=== PATIENT | male | born 1985 | race African-American/Black ===

== ENCOUNTER 2016-04-05 06:01 | Emergency (ER) | payer BC ==
[2016-04-05] MEDS ORDERED: NORMAL SALINE 1000 ML 1,000 ML IV PRN (06:43)
[2016-04-05 07:13] LABS: ABSOLUTE LYMPHOCYTES (AUTO) 1.9 10^3/uL (0.5-4.7); ABSOLUTE MONOCYTES (AUTO) 0.7 10^3/uL (0.1-1.4); BASOPHILS % (AUTO) 0.4 % (0-2); EOSINOPHILS % (AUTO) 0.6 % (0-6); HEMATOCRIT 43.9 % (37.9-51.0); HEMOGLOBIN 14.4 g/dL (13.5-17.0); HGB HCT DIFFERENCE -0.7; LYMPHOCYTES % (AUTO) 21.6 % (13-45); MEAN CORPUSCULAR HEMOGLOBIN 23.3 pg (27.0-33.4); MEAN CORPUSCULAR HGB CONC 32.9 g/dL (32.0-36.0); MEAN CORPUSCULAR VOLUME 71 fl (80-97); MONOCYTES % (AUTO) 7.9 % (3-13); RED BLOOD COUNT 6.19 10^6/uL (4.35-5.55); RED CELL DISTRIBUTION WIDTH 14.5 % (11.5-14.0); SEGMENTED NEUTROPHILS % (AUTO) 69.5 % (42-78); WHITE BLOOD COUNT 8.6 10^3/uL (4.0-10.5)
[2016-04-05 07:18] LABS: APPEARANCE,URINE CLEAR; BILIRUBIN,URINE NEGATIVE (NEGATIVE); GLUCOSE, URINE NEGATIVE (NEGATIVE); KETONES,URINE NEGATIVE (NEGATIVE); LEUKOCYTE ESTERASE,URINE NEGATIVE (NEGATIVE); NITRITE,URINE NEGATIVE (NEGATIVE); PROTEIN,URINE NEGATIVE (NEGATIVE); URINE SPECIFIC GRAVITY 1.016; UROBILINOGEN,URINE NEGATIVE mg/dL (<2.0)
[2016-04-05 07:19] LABS: PROTHROMBIN TIME 13.2 SEC (11.4-15.4)
[2016-04-05 07:41] LABS: ALANINE AMINOTRANSFERASE 93 U/L (21-72); ALBUMIN 4.5 g/dL (3.5-5.0); ALKALINE PHOSPHATASE 83 U/L (38-126); ANION GAP 13 (5-19); ASPARTATE AMINO TRANSFERASE 39 U/L (17-59); BILIRUBIN,TOTAL 0.4 mg/dL (0.2-1.3); BLOOD UREA NITROGEN 18 mg/dL (7-20); CALCIUM 9.8 mg/dL (8.4-10.2); CARBON DIOXIDE 29 mmol/L (22-30); CHLORIDE 97 mmol/L (98-107); CREATINE KINASE 216 U/L (55-170); CREATININE RESULT 1.06 mg/dL (0.52-1.25); GLUCOSE 142 mg/dL (75-110); LIPASE 88.9 U/L (23-300); POTASSIUM 3.6 mmol/L (3.6-5.0); SODIUM 139.4 mmol/L (137-145); TOTAL PROTEIN 7.9 g/dL (6.3-8.2)
[2016-04-05 07:46] LABS: ALCOHOL < 10 mg/dL (NONE DETECTED)
[2016-04-05 07:52] LABS: CREATINE KINASE MB 0.38 ng/mL (<4.55); TROPONIN I < 0.012 ng/mL
[2016-04-05 08:11] LABS: THYROID STIMULATING HORMONE 2.51 uIU/mL (0.47-4.68)
[2016-04-05 08:13] VITALS: BP 138/73
--- NOTE | 2016-04-05 08:55 | ER Document Report ---
ED General - General Chief Complaint: Palpitations Stated Complaint: FAST HEART RATE TRAVEL OUTSIDE OF THE [place] IN LAST 30 DAYS: No - HPI Patient complains to provider of: tachycardia Notes: Patient states he was drinking tonight after drinking alcohol developed tachycardia. Patient states he was drinking beer and adrian. Denies any drug abuse. Patient states was resting tachycardia developed denies any chest pain shortness of breath recent travel fevers chills nausea vomiting diarrhea. Patient otherwise has no complaints - Related Data Allergies/Adverse Reactions: No Known Allergies Allergy (Verified 04/05/16 06:07) Home Medications: Current Home Medications Amlodipine Besylate [Amlodipine Besylate] 1 tab PO QAM 04/05/16 [History] Atorvastatin Calcium [Atorvastatin Calcium] 1 tab PO QAM 04/05/16 [History] Hydrochlorothiazide [Hydrochlorothiazide] 1 tab PO QAM 04/05/16 [History] Past Medical History - Social History Smoking Status: Unknown if Ever Smoked Family History: Reviewed & Not Pertinent Patient has suicidal ideation: No Patient has homicidal ideation: No - Past Medical History Cardiac Medical History: Reports: Hx Hypercholesterolemia, Hx Hypertension Surgical Hx: Negative - Immunizations Hx Diphtheria, Pertussis, Tetanus Vaccination: Yes Review of Systems - Review of Systems Constitutional: No symptoms reported EENT: No symptoms reported Cardiovascular: Palpitations Respiratory: No symptoms reported Gastrointestinal: No symptoms reported Genitourinary: No symptoms reported Male Genitourinary: No symptoms reported Musculoskeletal: No symptoms reported Skin: No symptoms reported Hematologic/Lymphatic: No symptoms reported Neurological/Psychological: No symptoms reported -: Yes All other systems reviewed and negative Physical Exam - Vital signs Vitals: Temp Pulse BP Pulse Ox 98.6 F 125 H 163/84 H 98 04/05/16 06:17 04/05/16 06:17 04/05/16 06:17 04/05/16 06:17 Interpretation: Normal - General General appearance: Appears well, Alert - HEENT Head: Normocephalic, Atraumatic Eyes: Normal Pupils: PERRL - Respiratory Respiratory status: No respiratory distress Chest status: Nontender Breath sounds: Normal Chest palpation: Normal - Cardiovascular Rhythm: Tachycardia Heart sounds: Normal auscultation Murmur: No - Abdominal Inspection: Normal Distension: No distension Bowel sounds: Normal Tenderness: Nontender Organomegaly: No organomegaly - Back Back: Normal, Nontender - Extremities General upper extremity: Normal inspection, Nontender, Normal color, Normal ROM , Normal temperature General lower extremity: Normal inspection, Nontender, Normal color, Normal ROM , Normal temperature, Normal weight bearing. No: Flores's sign - Neurological Neuro grossly intact: Yes Cognition: Normal Orientation: AAOx4 Jahaira Coma Scale Eye Opening: Spontaneous [place] Coma Scale Verbal: Oriented [place] Coma Scale Motor: Obeys Commands [place] Coma Scale Total: 15 Speech: Normal Motor strength normal: LUE, RUE, LLE, RLE Sensory: Normal - Psychological Associated symptoms: Normal affect, Normal mood - Skin Skin Temperature: Warm Skin Moisture: Dry Skin Color: Normal Course - Re-evaluation Re-evalutation: 04/05/16 08:36 Patient coming in for evaluation tachycardia. Patient's lab work shows no critical etiology. After IV hydration patient's tachycardia has improved. More likely tachycardia due to dehydration or alcohol abuse. At this time we are unable to perform urine drug screen testing due to lack of laboratory reagent. This also on the differential patient with no chest pain no shortness of breath with them and laboratory studies and afebrile symptoms after IV hydration. Patient stable to go home. - Vital Signs Vital signs: Temp Pulse Resp BP Pulse Ox 98.6 F 125 H 21 H 138/73 H 100 04/05/16 06:17 04/05/16 06:17 04/05/16 08:01 04/05/16 08:01 04/05/16 08:01 - Laboratory Result Diagrams: 04/05/16 06:55 04/05/16 06:55 Laboratory results interpreted by me: 04/05/16 04/05/16 04/05/16 06:55 06:55 06:55 RBC 6.19 H MCV 71 L MCH 23.3 L RDW 14.5 H Chloride 97 L Glucose 142 H ALT 93 H Creatine Kinase 216 H Urine Ascorbic Acid 20 H Discharge - Discharge Clinical Impression: Tachycardia, Alcohol use Condition: Good Disposition: HOME, SELF-CARE Instructions: Palpitations (Irregular or Rapid Heartrate) ([facility]) Additional Instructions: Please limit your alcohol use. Return to ER symptoms worsen. Forms: Return to Work
--- NOTE | 2016-04-05 10:21 | EKG REPORT ---
SEVERITY:- BORDERLINE ECG - SINUS TACHYCARDIA BORDERLINE T ABNORMALITIES, ANT-LAT LEADS : Confirmed by: Luis Daniel Riley 05-Apr-2016 10:20:29
[2016-04-08 14:33] LABS: URINE BARBITURATES SCREEN NEGATIVE; URINE METHADONE SCREEN NEGATIVE; URINE PHENCYCLIDINE SCREEN NEGATIVE
== END 2016-04-05 08:53 | disposition home or self-care (01) ==
LOC: ER 06:01
DX: R00.0 Tachycardia, unspecified (principal); Z72.89 Other problems related to lifestyle; E78.00 Pure hypercholesterolemia, unspecified; I10 Essential (primary) hypertension
CPT/HCPCS: 93005; 99285; 96360; 36415; 84439; 82553; 80307 ×2; 82550; 83690; 84443; 85025; 85610; 80053; 81001; 84484; 93010; J7030

== ENCOUNTER 2019-10-05 01:10 | Emergency (ER) | payer BC ==
--- NOTE | 2019-10-05 03:29 | ER Document Report ---
ED General - General Chief Complaint: Neck Pain >24hrs old Stated Complaint: NECK PAIN Time Seen by Provider: 10/05/19 03:15 [facility] [[facility] - Follow up as needed VIDHYA LATIF MD [Primary Care Provider] - Follow up as needed Notes: 34-year-old male presents emergency department complaining of right-sided anterior neck pain that he woke up with a few days ago and has been constant ever since. The only thing that relieves it is taking a Goody's powder and that it will go away completely and then comes back the next day. He states that if he coughs to clear his throat he has some pain or if he flexes his head to the left he has some pain otherwise there is no pain. Denies any fevers, any foreign body sensation, any restriction of movement or any injury to the area. Denies any sore throat or rhinorrhea. Patient also notes that he has a history of hypertension which has not been treated for the past year. He is aware of the importance of treating this, aware of the importance of following up with his primary care physician. TRAVEL OUTSIDE OF THE [place] IN LAST 30 DAYS: No - Related Data Allergies/Adverse Reactions: No Known Allergies Allergy (Verified 04/05/16 06:07) Past Medical History - General Information source: Patient - Social History Smoking Status: Never Smoker Frequency of alcohol use: Social Drug Abuse: None Family History: Hypertension - Past Medical History Cardiac Medical History: Reports: Hx Hypercholesterolemia, Hx Hypertension - Immunizations Hx Diphtheria, Pertussis, Tetanus Vaccination: Yes Review of Systems - Review of Systems Constitutional: No symptoms reported EENT: See HPI, Other - Anterior neck pain. denies: Throat pain, Difficulty swallowing, Throat swelling, Mouth pain, Mouth swelling Musculoskeletal: See HPI, Neck pain -: Yes All other systems reviewed and negative Physical Exam - Vital signs Vitals: Temp Pulse Resp BP Pulse Ox 98.5 F 79 18 157/106 H 100 10/05/19 01:35 10/05/19 01:35 10/05/19 01:35 10/05/19 01:35 10/05/19 01:35 Interpretation: Hypertensive - Notes Notes: GENERAL: Alert, interacts well. No acute distress. HEAD: Normocephalic, atraumatic EYES: Pupils equal, round and reactive to light, extraocular movements intact. ENT: Oral mucosa moist, tongue midline. Nares patent, no nasal septal hematoma, TMs intact. No tonsillar enlargement, no deviation of the uvula, no evidence of peritonsillar abscess. NECK: Full range of motion, supple, trachea midline. Pinpoint tenderness between the trachea and the sternocleidomastoid muscle on the right hand side midway between the clavicle and the chin, there is no mass here, there is no fluctuance, there is no erythema, there is a noninfected appearing ingrown hair just superior to this which is not tender to palpation. There is no tracheal deviation, there is no thyroid enlargement. There is no distention of the neck veins. Patient has full range of motion of his neck. There is no spasm of the sternocleidomastoid muscle. LUNGS: Clear to auscultation bilaterally, no respiratory distress. NEUROLOGICAL: Alert and oriented x3, normal speech, cranial nerves II through XII grossly intact. PSYCH: Normal mood, normal affect. SKIN: Warm, Dry, normal turgor. Course - Re-evaluation Re-evalutation: 10/05/19 04:12 Patient stated that he was concerned about a possible aneurysm to his jugular vein. We discussed that currently has no risk factors for this and no signs of this. I also discussed the other concerning things that would cause pain in this area that would require imaging, he agrees to try conservative treatment first in order to reduce his exposure to radiation. Should the patient develop fever, difficulty swallowing, any blurry vision or neurologic symptoms, difficulty moving his neck or any swelling he will return to the emergency department and we will consider imaging. Patient will try anti-inflammatories and muscle relaxers first. Likely he has an inflamed lymph node that is in the deeper space of the neck possibly related to the ingrown hair that is causing this pain. No indication for antibiotics for the ingrown hair as there is no erythema and no fluctuance and the hair itself is not tender. - Vital Signs Vital signs: Temp Pulse Resp BP Pulse Ox 98.8 F 88 18 173/109 H 99 10/05/19 03:35 10/05/19 03:35 10/05/19 03:35 10/05/19 03:35 10/05/19 03:35 Discharge - Discharge Clinical Impression: Neck pain on right side Condition: Stable Disposition: HOME, SELF-CARE Additional Instructions: Today I did not find any signs of infection, pinched nerve or other serious cause of neck pain. I suspect you likely have a somewhat inflamed lymph node from the ingrown hairs on your neck that is also causing some pain when it pushes on the muscles in your neck. I would like you to take ibuprofen 800 mg every 8 hours whether you think you need it or not for the next 3 days. I would also like you to take the Robaxin which is a muscle relaxer if you continue to have pain after taking the ibuprofen. This should help to relieve some of your symptoms. Please return for fevers, difficulty swallowing, visible swelling to your neck or difficulty moving her neck or any new or concerning symptoms. Prescriptions: Methocarbamol [Robaxin 750 mg Tablet] 750 mg PO Q8HP PRN #20 tablet PRN Reason: Referrals: VIDHYA LATIF MD [Primary Care Provider] - Follow up as needed [facility] - Follow up as needed
[2019-10-05 03:36] VITALS: BP 173/109
== END 2019-10-05 03:40 | disposition home or self-care (01) ==
LOC: ER 01:10
DX: M54.2 Cervicalgia (principal); E78.00 Pure hypercholesterolemia, unspecified; I10 Essential (primary) hypertension
CPT/HCPCS: 99283

== ENCOUNTER → 2019-10-10 | Outpatient (CLI) | payer BC ==
[2019-10-10 11:32] LABS: ALKALINE PHOSPHATASE 92 U/L (38-126); ANION GAP 11 (5-19); ASPARTATE AMINO TRANSFERASE 56 U/L (17-59); BILIRUBIN,TOTAL 0.5 mg/dL (0.2-1.3); BLOOD UREA NITROGEN 13 mg/dL (7-20); CALCIUM 9.8 mg/dL (8.4-10.2); CARBON DIOXIDE 26 mmol/L (22-30); CHLORIDE 102 mmol/L (98-107); GLUCOSE 100 mg/dL (75-110); POTASSIUM 4.7 mmol/L (3.6-5.0)
== END ==
LOC: OD 10:17
PROVIDERS: ATTEND Physician Assistant
DX: E87.5 Hyperkalemia (principal)
CPT/HCPCS: 36415; 80053

== ENCOUNTER → 2019-12-07 | Outpatient (CLI) | payer BC ==
--- NOTE | 2019-12-07 11:48 | RADIOLOGY REPORT (SQ) ---
EXAM DESCRIPTION: U/S ABDOMEN LIMITED W/O DOP IMAGES COMPLETED DATE/TIME: 12/07/2019 8:44 am REASON FOR STUDY: ELEVATED LIVER ENZYMES R74.8 ABNORMAL LEVELS OF OTHER SERUM ENZYMES COMPARISON: None. TECHNIQUE: Dynamic and static grayscale images acquired of the abdomen and recorded on PACS. Additio nal selected color Doppler and spectral images recorded. LIMITATIONS: None. FINDINGS: PANCREAS: The visualized portions of the pancreas appear normal. LIVER: Normal contour and echotexture of the liver. LIVER VASCULATURE: Hepatopetal directional flow within the portal veins. GALLBLADDER: The gallbladder wall measures 2.3 mm in thickness. There is no cholelithiasis, sludge o r pericholecystic fluid. ULTRASOUND-DETECTED CARRION'S SIGN: Negative. INTRAHEPATIC DUCTS AND COMMON DUCT: The common bile duct measures 2.5 mm in diameter. There is no di latation of the intrahepatic bile ducts. INFERIOR VENA CAVA: Not assessed. AORTA: No aneurysm. RIGHT KIDNEY: The right kidney measures 9.3 cm in length. There is no hydronephrosis. PERITONEAL AND RIGHT PLEURAL SPACE: No ascites or effusions. OTHER: No other findings. IMPRESSION: Negative ultrasound of the abdomen. TECHNICAL DOCUMENTATION: JOB ID: [id number] 2010 [employer]- All Rights Reserved Reading location - IP/workstation name: [email or web address]
== END ==
LOC: RAD 07:56
PROVIDERS: ATTEND Physician Assistant
DX: R74.8 Abnormal levels of other serum enzymes (principal)
CPT/HCPCS: 76705

== ENCOUNTER 2020-02-12 17:30 | Emergency (ER) | payer BC ==
--- NOTE | 2020-02-12 18:58 | RADIOLOGY REPORT (SQ) ---
EXAM DESCRIPTION: CHEST 2 VIEWS IMAGES COMPLETED DATE/TIME: 02/12/2020 6:31 pm REASON FOR STUDY: chest pain racing heart COMPARISON: None. EXAM PARAMETERS: NUMBER OF VIEWS: two views TECHNIQUE: Digital Frontal and Lateral radiographic views of the chest acquired. RADIATION DOSE: NA LIMITATIONS: none FINDINGS: LUNGS AND PLEURA: No opacities, masses or pneumothorax. No pleural effusion. MEDIASTINUM AND HILAR STRUCTURES: No masses or contour abnormalities. HEART AND VASCULAR STRUCTURES: Heart normal size. No evidence for failure. BONES: No acute findings. HARDWARE: None in the chest. OTHER: No other significant finding. IMPRESSION: NO ACUTE RADIOGRAPHIC FINDING IN THE CHEST. TECHNICAL DOCUMENTATION: JOB ID: [id number] 2010 [employer]- All Rights Reserved Reading location - IP/workstation name: [email or web address]
[2020-02-12 19:05] LABS: ABSOLUTE BASOPHILS # (AUTO) 0.1 10^3/uL (0.0-0.2); ABSOLUTE LYMPHOCYTES (AUTO) 2.1 10^3/uL (0.5-4.7); ABSOLUTE MONOCYTES (AUTO) 0.4 10^3/uL (0.1-1.4); BASOPHILS % (AUTO) 1.2 % (0-2); EOSINOPHILS % (AUTO) 0.4 % (0-6); HEMATOCRIT 42.8 % (37.9-51.0); HEMOGLOBIN 13.7 g/dL (13.5-17.0); LYMPHOCYTES % (AUTO) 37.5 % (13-45); MEAN CORPUSCULAR HEMOGLOBIN 23.3 pg (27.0-33.4); MEAN CORPUSCULAR VOLUME 73 fl (80-97); MONOCYTES % (AUTO) 6.8 % (3-13); PLATELET COUNT 359 10^3/uL (150-450); RED BLOOD COUNT 5.89 10^6/uL (4.35-5.55); RED CELL DISTRIBUTION WIDTH 15.1 % (11.5-14.0); SEGMENTED NEUTROPHILS % (AUTO) 54.1 % (42-78); TOTAL CELLS COUNTED % (AUTO) 100 %; WHITE BLOOD COUNT 5.6 10^3/uL (4.0-10.5)
[2020-02-12 19:15] LABS: ALKALINE PHOSPHATASE 79 U/L (38-126); ANION GAP 11 (5-19); ASPARTATE AMINO TRANSFERASE 34 U/L (17-59); BILIRUBIN,DIRECT 0.1 mg/dL (0.0-0.4); BILIRUBIN,TOTAL 0.5 mg/dL (0.2-1.3); BLOOD UREA NITROGEN 12 mg/dL (7-20); CALCIUM 10.1 mg/dL (8.4-10.2); CARBON DIOXIDE 28 mmol/L (22-30); CHLORIDE 101 mmol/L (98-107); GLUCOSE 113 mg/dL (75-110); POTASSIUM 4.4 mmol/L (3.6-5.0); TOTAL PROTEIN 8.3 g/dL (6.3-8.2)
--- NOTE | 2020-02-12 19:53 | ER Document Report ---
ED Cardiac - General Chief Complaint: Palpitations Stated Complaint: PALPITATIONS Time Seen by Provider: 02/12/20 17:55 Primary Care Provider: SPEEDY MARQUEZ PA [NO LOCAL MD] - Follow up as needed Notes: CHIEF COMPLAINT: Palpitations HPI: History is obtained from the patient and the records. A 34-year-old male presenting for evaluation of palpitations over the last week. 2-3 times daily. States this is similar to something that happened to him 3 years ago. States he did see cardiology at that time and they put him on a Holter monitor for a day did not see anything and he did not follow back up with them. Patient states that when the symptoms come on they may last up to an hour and he feels very anxious. He does not take any medications for anxiety. ROS: See HPI - all other systems were reviewed and are otherwise negative Constitutional: no fever Eyes: no drainage, no blurred vision ENT: no runny nose, no sore throat Cardiovascular: + chest pain Resp: no SOB, no cough GI: no vomiting, no diarrhea, no abdominal pain : no dysuria Integumentary: no rash Allergy: no hives Musculoskeletal: no extremity pain or swelling Neurological: no numbness/tingling, no weakness MEDICATIONS: I agree with the patient medications as charted by the RN. ALLERGIES: I agree with the allergies as charted by the RN. PAST MEDICAL HISTORY/PAST SURGICAL HISTORY: Reviewed and agree as charted by RN. SOCIAL HISTORY: Reviewed and agree as charted by RN. FAMILY HISTORY: No significant familial comorbid conditions directly related to patient complaint EXAM: Reviewed vital signs as charted by RN. CONSTITUTIONAL: Alert and oriented and responds appropriately to questions. Well-appearing; well-nourished HEAD: Normocephalic; atraumatic EYES: PERRL; Conjunctivae clear, sclerae non-icteric ENT: normal nose; no rhinorrhea; moist mucous membranes; pharynx without lesions noted, no uvula edema or deviation, no tonsillar hypertrophy, phonation normal NECK: Supple without meningismus; non-tender; no cervical lymphadenopathy, no masses CARD: RRR; no murmurs, no clicks, no rubs, no gallops; symmetric distal pulses RESP: Normal chest excursion without splinting or tachypnea; breath sounds clear and equal bilaterally; no wheezes, no rhonchi, no rales, pulse oximetry 98% on room air not hypoxic ABD/GI: Normal bowel sounds; non-distended; soft, non-tender, no rebound, no guarding; no palpable organomegaly or masses. BACK: The back appears normal and is non-tender to palpation, there is no CVA tenderness EXT: Normal ROM in all joints; non-tender to palpation; no cyanosis, no effusions, no edema SKIN: Normal color for age and race; warm; dry; good turgor; no acute lesions noted NEURO: Moves all extremities equally; Motor and sensory function intact PSYCH: The patient's mood and manner are appropriate. Grooming and personal hygiene are appropriate. MDM: EKG normal sinus rhythm ventricular rate of 91. ND 156, QT 276, QTc 340. Borderline T wave flattening across all leads. Borderline EKG. Interpreted by emergency department physicians. EKG is essentially unchanged from March 2016. 34-year-old male presenting with palpitations over the last week. Has been in a normal sinus rhythm here in the emergency department. Mildly hypertensive with history of same is on medication for same. He will discuss this with his PCP. I will refer him to cardiology in town per his request. Th is may also be anxiety. He states he does feel anxious around these times when he has the sensation and would like medication for this as well to see if it helps TRAVEL OUTSIDE OF THE [place] IN LAST 30 DAYS: No - Related Data Allergies/Adverse Reactions: No Known Allergies Allergy (Verified 04/05/16 06:07) Home Medications: Amlodipine Past Medical History - Social History Smoking Status: Never Smoker Frequency of alcohol use: Social Drug Abuse: None Family History: Hypertension - Past Medical History Cardiac Medical History: Reports: Hx Hypercholesterolemia, Hx Hypertension - Immunizations Hx Diphtheria, Pertussis, Tetanus Vaccination: Yes Physical Exam - Vital signs Vitals: Temp Pulse Resp BP Pulse Ox 99.0 F 98 20 172/98 H 100 02/12/20 17:43 02/12/20 17:43 02/12/20 17:43 02/12/20 17:43 02/12/20 17:43 Course - Vital Signs Vital signs: Temp Pulse Resp BP Pulse Ox 99.0 F 98 16 165/104 H 100 02/12/20 17:43 02/12/20 17:43 02/12/20 18:51 02/12/20 18:51 02/12/20 18:51 - Laboratory Result Diagrams: 02/12/20 18:20 02/12/20 18:20 Laboratory results interpreted by me: 02/12/20 02/12/20 18:20 18:20 RBC 5.89 H MCV 73 L MCH 23.3 L RDW 15.1 H Glucose 113 H ALT 54 H Total Protein 8.3 H Discharge - Discharge Clinical Impression: Palpitations Condition: Stable Disposition: HOME, SELF-CARE Additional Instructions: Take the Vistaril at onset of any sensation of palpitations or anxiety. Do not drive if taking this medication as it can make you sleepy. Follow-up with cardiology for further evaluation and testing as discussed call for appointment Prescriptions: Hydroxyzine Pamoate [Vistaril 25 mg Capsule] 25 mg PO Q6HP PRN #20 capsule PRN Reason: Referrals: SPEEDY MARQUEZ PA [NO LOCAL MD] - Follow up as needed JULIOCESAR TIAN MD [ACTIVE STAFF] - Follow up as needed
[2020-02-12 20:21] VITALS: BP 163/102
--- NOTE | 2020-02-12 23:58 | EKG REPORT ---
SEVERITY:- BORDERLINE ECG - SINUS RHYTHM BORDERLINE T WAVE ABNORMALITIES : Confirmed by: Luis Daniel Riley 12-Feb-2020 23:57:29
== END 2020-02-12 20:30 | disposition home or self-care (01) ==
LOC: ER 17:30
DX: R00.2 Palpitations (principal); R07.9 Chest pain, unspecified; E78.00 Pure hypercholesterolemia, unspecified; I10 Essential (primary) hypertension
CPT/HCPCS: 36415; 71046; 80053; 83735; 84443; 84484; 85025; 93005; 93010; 99285

== ENCOUNTER 2020-02-19 02:14 | Emergency (ER) | payer BC ==
[2020-02-19 03:04] LABS: ABSOLUTE BASOPHILS # (AUTO) 0.1 10^3/uL (0.0-0.2); ABSOLUTE LYMPHOCYTES (AUTO) 2.3 10^3/uL (0.5-4.7); ABSOLUTE MONOCYTES (AUTO) 0.9 10^3/uL (0.1-1.4); ABSOLUTE NEUT (AUTO) 3.9 10^3/uL (1.7-8.2); BASOPHILS % (AUTO) 0.9 % (0-2); EOSINOPHILS % (AUTO) 0.5 % (0-6); HEMOGLOBIN 13.8 g/dL (13.5-17.0); LYMPHOCYTES % (AUTO) 31.9 % (13-45); MEAN CORPUSCULAR HEMOGLOBIN 23.2 pg (27.0-33.4); MEAN CORPUSCULAR VOLUME 72 fl (80-97); MONOCYTES % (AUTO) 12.2 % (3-13); PLATELET COUNT 341 10^3/uL (150-450); RED BLOOD COUNT 5.95 10^6/uL (4.35-5.55); RED CELL DISTRIBUTION WIDTH 14.8 % (11.5-14.0); SEGMENTED NEUTROPHILS % (AUTO) 54.5 % (42-78); TOTAL CELLS COUNTED % (AUTO) 100 %; WHITE BLOOD COUNT 7.1 10^3/uL (4.0-10.5)
[2020-02-19 03:24] LABS: ALBUMIN 4.7 g/dL (3.5-5.0); ALKALINE PHOSPHATASE 80 U/L (38-126); ANION GAP 15 (5-19); ASPARTATE AMINO TRANSFERASE 28 U/L (17-59); BILIRUBIN,DIRECT 0.1 mg/dL (0.0-0.4); BILIRUBIN,TOTAL 0.5 mg/dL (0.2-1.3); BLOOD UREA NITROGEN 12 mg/dL (7-20); CALCIUM 9.6 mg/dL (8.4-10.2); CARBON DIOXIDE 25 mmol/L (22-30); CHLORIDE 101 mmol/L (98-107); CREATINE KINASE 165 U/L (55-170); GLUCOSE 105 mg/dL (75-110); POTASSIUM 3.8 mmol/L (3.6-5.0); TOTAL PROTEIN 7.8 g/dL (6.3-8.2)
[2020-02-19 03:45] LABS: CREATINE KINASE MB < 0.22 ng/mL (<4.55); TROPONIN I < 0.012 ng/mL
--- NOTE | 2020-02-19 04:33 | RADIOLOGY REPORT (SQ) ---
EXAM DESCRIPTION: XR CHEST 2 VIEWS COMPLETED DATE/TME: 02/19/2020 04:07 CLINICAL HISTORY: 34 years, Male, chest pain COMPARISON: 02/12/2020 NUMBER OF VIEWS: Two TECHNIQUE: Two views of the chest LIMITATIONS: None. FINDINGS: The lungs are clear. Heart is normal in size. No pneumothorax or pleural effusion. No acute fracture IMPRESSION: No acute cardiopulmonary abnormality copyright 2010 [employer]- All Rights Reserved
--- NOTE | 2020-02-19 07:35 | ER Document Report ---
ED General - General Chief Complaint: Chest Pain Stated Complaint: HEART PALPITATIONS Time Seen by Provider: 02/19/20 06:09 Primary Care Provider: LAUREN MYLES MD [Primary Care Provider] - Follow up as needed TRAVEL OUTSIDE OF THE [place] IN LAST 30 DAYS: No - HPI Context: This is a 34-year-old male presenting with a complaint of palpitations and tachycardia. Patient has been seen was ED before for the same chief complaint. Patient states that he recently has completed a 24-hour Holter monitor that was prescribed by his PCP. Patient states that he has had multiple evaluations and was told each time that "everything is fine." Patient states he knows there must be something going on with his heart because some days it feels like it is racing and then other days it feels like it is pounding out of his chest. Patient states that laying flat at times sometimes exacerbates the symptoms. Patient states nothing seems to alleviate the symptoms. Patient denies smoking, alcohol use, cocaine use, history of thyroid trouble, history of congenital heart disease. Patient denies shortness of breath, fever, loss of sense of taste or loss of sense of smell, history of COVID-19 infection, history of known exposure to persons positive for COVID-19 or persons under investigation for COVID-19. Patient denies use of any stimulants such as decongestants, caffeine, energy drinks. Associated symptoms: Other - See HPI Exacerbated by: Other - See HPI Relieved by: Other - See HPI Similar symptoms previously: Yes Recently seen / treated by doctor: Yes - Related Data Allergies/Adverse Reactions: No Known Allergies Allergy (Verified 04/05/16 06:07) Home Medications: amilodipine, hydroxyzine Past Medical History - General Information source: Patient - Social History Smoking Status: Never Smoker Frequency of alcohol use: None Drug Abuse: None Family History: Reviewed & Not Pertinent, Hypertension Patient has suicidal ideation: No Patient has homicidal ideation: No - Past Medical History Cardiac Medical History: Reports: Hx Hypercholesterolemia, Hx Hypertension - Immunizations Hx Diphtheria, Pertussis, Tetanus Vaccination: Yes Review of Systems - Review of Systems Constitutional: No symptoms reported EENT: No symptoms reported Cardiovascular: Palpitations Respiratory: No symptoms reported Gastrointestinal: No symptoms reported Genitourinary: No symptoms reported Male Genitourinary: No symptoms reported Musculoskeletal: No symptoms reported Skin: No symptoms reported Hematologic/Lymphatic: No symptoms reported Neurological/Psychological: Anxiety -: Yes All other systems reviewed and negative Physical Exam - Vital signs Vitals: Temp Pulse BP Pulse Ox 98.7 F 107 H 151/94 H 100 02/19/20 02:31 02/19/20 02:31 02/19/20 02:31 02/19/20 02:31 - Notes Notes: CONSTITUTIONAL [Vital signs reviewed, Patient appears anxious, Alert and oriented X 3, Normal stature. Orthostatic vital signs were performed on the patient by this MD and were negative.] HEAD [Atraumatic, Normocephalic.] EYES [Eyes are normal to inspection, No discharge from eyes, Extraocular muscles intact, Sclera are normal, Conjunctiva are normal.] ENT [External ears normal to inspection, Nose examination normal, Mouth normal to inspection.] NECK [Normal ROM, No jugular venous distention, No meningeal signs, ] RESPIRATORY CHEST [Chest is nontender, Breath sounds normal, No respiratory distress.] CARDIOVASCULAR [Tachycardia, No murmurs, Normal S1 S2, No rub, No gallop.] ABDOMEN [Abdomen is nontender, No pulsatile masses, No other masses, Bowel sounds normal, No distension, No peritoneal signs, No hernias.] BACK [There is no CVA Tenderness, There is no tenderness to palpation, Normal inspection.] UPPER EXTREMITY [Inspection normal, No cyanosis, No clubbing, No edema, LOWER EXTREMITY [Inspection normal, No cyanosis, No clubbing, No edema, No calf tenderness, NEURO [No focal motor deficits, No focal sensory deficits, Speech normal.] SKIN [Skin is warm, Skin is dry, Skin is normal color.] PSYCHIATRIC [Anxious affect. ] Course - Re-evaluation Re-evalutation: 02/19/20 07:52 Results of ED MSE discussed with patient. Conversation with Dr. Chacon with cardiology discussed with patient and patient's mother. When asked if all the patient's questions were answered during this visit and concerns addressed during this visit patient answered in the affirmative. Dr. Chacon is in the hospital and is going to come to the ED to see the patient himself and arrange follow-up. - Vital Signs Vital signs: Temp Pulse Resp BP Pulse Ox 98.7 F 107 H 24 H 151/94 H 98 02/19/20 02:31 02/19/20 02:31 02/19/20 06:00 02/19/20 02:31 02/19/20 06:00 - Laboratory Result Diagrams: 02/19/20 02:56 02/19/20 02:56 Laboratory results interpreted by me: 02/19/20 02:56 RBC 5.95 H MCV 72 L MCH 23.2 L RDW 14.8 H - Diagnostic Test Radiology reviewed: Reports reviewed - EKG Interpretation by Me Additional EKG results interpreted by me: 02/19/20 07:52 EKG obtained on 02/19/2020 at 0224 hrs. was interpreted by this MD findings normal sinus rhythm, rate 92, normal axis, P waves preceding QRS complexes, QRS complexes appear narrow, CT interval appears normal, QTC is 396, there are no obvious patterns of ST segment elevation, depression, or reciprocal changes seen to suggest acute myocardial ischemia or infarction. When compared to EKG from 02/12/2020, the gross morphology of the 2 EKGs appear to be basically the same. Impression: Normal sinus rhythm with nonspecific ST segments - Consults Dr. Chacon, cardiology Time consulted: 07:35 - Dr. Chacon stated he would come to the ED and see the patient. Reason for consultation: 02/19/20 07:55 Persistent palpitations and tachycardia of unknown etiology Consulted provider: will come to ER Discharge - Discharge Clinical Impression: Palpitations Condition: Stable Disposition: HOME, SELF-CARE Instructions: Palpitations (Irregular or Rapid Heartrate) ([facility]) Additional Instructions: Return to the Emergency Department without delay if any worse. HOME CARE INSTRUCTIONS & INFORMATION: Thank you for choosing us for your medical needs. We hope you're satisfied with the care you received. After you leave, you must properly care for your problem and, at the same time, observe its progress. Any condition can change. Some illnesses can change rapidly over hours or days. If your condition worsens, return to the Emergency Department or see your physician promptly. ABOUT YOUR X-RAYS AND EKG'S: If you had an EKG or X-rays taken, they have been read by the Emergency Physician. The X-rays and EKG's will also be read by a Radiologist or Harvesting Supervisor within 24 hours. If discrepancies are noted, you will be notified by telephone. Please be certain the ED has a correct telephone number & address where you can be reached. Also, realize that some fractures or abnormalities do not show up on initial X-rays. If your symptoms continue, see your physician. ABOUT YOUR LABORATORY TEST: If you had laboratory tests, the results have been reviewed by the Emergency Physician. Some test results (for example cultures) may not be available for several days. You will be contacted if any test result shows you need additional treatment. Please be certain the ED has a correct telephone number and address where you can be reached. ABOUT YOUR MEDICATIONS: You will receive instructions on how to take your medicine on the prescription label you receive. Additional information may be provided by the Pharmacy. If you have questions afterwards, call the ED for clarification or further instructions. Some prescribed medications may cause drowsiness. Do not perform tasks such as driving a car or operating machinery without consulting your Pharmacist. If you feel you need a refill of pain medication, your condition will need re-evaluation. Please do not call for a refill of any medication. ABOUT YOUR SIGNATURE: Signature of this document acknowledges to followin. Understanding that you received emergency treatment and that you may be released before al medical problems are known or treated. Please be certain the ED has a correct phone number & address where you can be reached. 2. Acknowledgement that you will arrange for follow-up care as recommended. 3. Authorization for the Emergency Physician to provide information to your follow-up Physician in order to maximize your care. AT ANY TIME, IF YOUR SYMPTOMS CHANGE SIGNIFICANTLY OR WORSEN OR YOU DEVELOP NEW SYMPTOMS, RETURN TO THE EMERGENCY DEPARTMENT IMMEDIATELY FOR RE-EVALUATION. OUR GOAL IS TO PROVIDE EXCELLENT MEDICAL CARE! WE HOPE THAT WE HAVE MET YOUR EXPECTATIONS DURING YOUR EMERGENCY DEPARTMENT VISIT AND THAT YOU FEEL YOU HAVE RECEIVED EXCELLENT CARE! Referrals: LAUREN MYLES MD [Primary Care Provider] - Follow up as needed FLAVIO CHACON MD [ACTIVE PROVISIONAL STAFF] - Follow up as needed
--- NOTE | 2020-02-19 08:35 | PDOC CONSULTATION ---
Consultation Consult Date: 02/19/20 Attending physician:: BALDEMAR TAN IV Provider Consulted: FLAVIO FLORES Consult reason:: Palpitations History of Present Illness Admission Date/PCP: LAUREN ABRAHAM MD History of Present Illness: JOSE ATKINSON is a 34 year old male with history of hypertension and hyperlipidemia who is consulted to our service for evaluation of palpitations after the patient presented to the emergency room twice in the last 2 weeks. The patient denies tobacco as well as drug use and there is no significant family history for coronary artery disease. He had been in his usual state of health until approximately 2 to 3 weeks ago when his became sick with a viral syndrome of some sort. He states that she tested negative for Covid and several days later he also developed similar symptoms consisting of body aches, congestion, general fatigue but no shortness of breath or documented fevers. This was followed by feeling his heart racing. He has noticed that his heart rate is now more elevated than his regular baseline and may increase up to 120 bpm at random times but particularly noticeable when performing any normal physical activities. He has also noticed elevated heart rates even when he is laying down. He endorses associated shortness of breath but now chest pain, dizziness, lightheadedness, syncope or presyncope. He had been to his primary care provider who tried him on metoprolol however he felt awful on the m edication and discontinued it. Physical exam on 02/19/2020 in the emergency room: GENERAL: Pleasant and conversational. Oriented x3 with normal mood. Not in acute distress. Well groomed and well developed. HEENT: Normocephalic, atraumatic. Pupils equal. Sclerae anicteric. Oropharynx moist. NECK: No JVD. No carotid bruits. LUNGS: Clear to auscultation bilaterally. Normal respiratory effort without the use of accessory muscles or intercostal retractions. CARDIOVASCULAR: Regular rate and rhythm, normal S1 and S2 without murmurs, rubs, or gallops. PMI not displaced. ABDOMEN: No masses or tenderness to palpation. No bruit. No splenomegaly or hepatomegaly. No abdominal aorta bruit noted. EXTREMITIES: No edema, no cyanosis, no clubbing. +2 pulses femoral and pedal pulses bilaterally. SKIN: No lesions or rashes. MUSCULOSKELETAL: No chest tenderness to palpation. NEUROLOGIC: Nonfocal. No gross sensory or motor deficits bilateral upper or lower extremities. Bedside limited undirected echocardiogram by myself on 02/19/2020: -Normal LV systolic function. -No pericardial effusion. Past Medical History Cardiac Medical History: Reports: Hyperlipidema, Hypertension Social History Smoking Status: Never Smoker Family History Family History: Reviewed & Not Pertinent, Hypertension Parental Family History Reviewed: Yes Children Family History Reviewed: Yes Sibling(s) Family History Reviewed.: Yes Medication/Allergy Home Medications: Amlodipine Besylate 1 tab PO QAM 04/05/16 Atorvastatin Calcium 1 tab PO QAM 04/05/16 Hydrochlorothiazide 1 tab PO QAM 04/05/16 Methocarbamol [Robaxin 750 mg Tablet] 750 mg PO Q8HP PRN #20 tablet 10/05/19 Hydroxyzine Pamoate [Vistaril 25 mg Capsule] 25 mg PO Q6HP PRN #20 capsule 02/12/20 Allergies/Adverse Reactions: No Known Allergies Allergy (Verified 04/05/16 06:07) Physical Exam Vital Signs: Temp Pulse Resp BP Pulse Ox 98.7 F 107 H 26 H 158/98 H 100 02/19/20 02:31 02/19/20 02:31 02/19/20 08:01 02/19/20 07:08 02/19/20 07:09 Intake & Output 02/18/20 02/19/20 02/20/20 06:59 06:59 06:59 Weight 86.6 kg Results Laboratory Results: 02/19/20 02:56 02/19/20 02:56 02/19/20 02/19/20 02:56 02:56 WBC 7.1 RBC 5.95 H Hgb 13.8 Hct 43.0 MCV 72 L MCH 23.2 L MCHC 32.0 RDW 14.8 H Plt Count 341 Seg Neutrophils % 54.5 Sodium 140.7 Potassium 3.8 Chloride 101 Carbon Dioxide 25 Anion Gap 15 BUN 12 Creatinine 1.19 Est GFR ( Amer) > 60 Glucose 105 Calcium 9.6 Total Bilirubin 0.5 AST 28 Alkaline Phosphatase 80 Total Protein 7.8 Albumin 4.7 02/19/20 02/19/20 02/19/20 02:56 02:56 06:27 Creatine Kinase 165 CK-MB (CK-2) < 0.22 Troponin I < 0.012 < 0.012 Impressions: Chest X-Ray 02/19/20 00:00 IMPRESSION: No acute cardiopulmonary abnormality copyright 2010 [employer]- All Rights Reserved 02/19/20 02:56 02/19/20 02:56 MCV 72 fl (80-97) L 02/19/20 02:56 MCH 23.2 pg (27.0-33.4) L 02/19/20 02:56 MCHC 32.0 g/dL (32.0-36.0) 02/19/20 02:56 RDW 14.8 % (11.5-14.0) H 02/19/20 02:56 Seg Neutrophils % 54.5 % (42-78) 02/19/20 02:56 Chloride 101 mmol/L (98-107) 02/19/20 02:56 Carbon Dioxide 25 mmol/L (22-30) 02/19/20 02:56 Anion Gap 15 (5-19) 02/19/20 02:56 Est GFR ( Amer) > 60 (>60) 02/19/20 02:56 Glucose 105 mg/dL (75-110) 02/19/20 02:56 Calcium 9.6 mg/dL (8.4-10.2) 02/19/20 02:56 Total Bilirubin 0.5 mg/dL (0.2-1.3) 02/19/20 02:56 AST 28 U/L (17-59) 02/19/20 02:56 Alkaline Phosphatase 80 U/L (38-126) 02/19/20 02:56 Total Protein 7.8 g/dL (6.3-8.2) 02/19/20 02:56 Albumin 4.7 g/dL (3.5-5.0) 02/19/20 02:56 02/19/20 02/19/20 02/19/20 02:56 02:56 06:27 Creatine Kinase 165 CK-MB (CK-2) < 0.22 Troponin I < 0.012 < 0.012 Assessment & Plan - Diagnosis (1) Palpitations Is this a current diagnosis for this admission?: Yes Plan: 34-year-old male with a normal cardiovascular exam, EKG demonstrating normal sinus rhythm with nonspecific ST-T wave changes who has been having episode of palpitations suspected to be secondary to sinus tachycardia based on rhythm strips in the emergency room. He has ruled out for cardiac ischemia with 2 troponins are negative with a benign chest x-ray. His limited undirected bedside echocardiogram did not demonstrate any significant pathology. The differential diagnosis of sinus tachycardia is extensive however, in this particular patient, given his history of a viral syndrome several weeks ago we have to consider a post viral sinus tachycardia. Fortunately, there is no evidence of cardiomyopathy on his bedside echocardiogram this morning. I discussed his current clinical condition with him and his mother extensively as well as future work-up and potential treatments. Recommendations: -2-week outpatient [employer] monitor to assess for occult dysrhythmias and estimate tachycardia burden. I will arrange for this. -Strongly suggest antibody testing for Covid. -I will arrange for cardiology follow-up with [facility] physicians in our [place] office. (2) Hypertension Is this a current diagnosis for this admission?: Yes Plan: The patient continues to have uncontrolled hypertension. Per his report, s everloli antihypertensives were tried by his primary care physician without any significant improvement. We discussed the importance of low-sodium diet. Recommendations: -I will defer further management to his primary care provider, Dr. Abraham however, given his recurrent palpitations I would suggest the use of carvedilol even though this is not a first-line agent for the treatment of hypertension. -Instructed the patient to keep a home blood pressure log and to bring it to his primary care physician a few days prior to his follow-up appointment.
[2020-02-19 08:40] VITALS: BP 154/77
--- NOTE | 2020-02-19 18:59 | EKG REPORT ---
SEVERITY:- BORDERLINE ECG - SINUS RHYTHM BORDERLINE T ABNORMALITIES, DIFFUSE LEADS : Confirmed by: Violeta Rosario MD 19-Feb-2020 18:58:36
== END 2020-02-19 08:15 | disposition home or self-care (01) ==
LOC: ER 02:14
DX: R00.2 Palpitations (principal); I10 Essential (primary) hypertension; F41.9 Anxiety disorder, unspecified; E78.5 Hyperlipidemia, unspecified; E78.00 Pure hypercholesterolemia, unspecified; Z79.899 Other long term (current) drug therapy
CPT/HCPCS: 36415; 71046; 80053; 82550; 82553; 84484; 85025; 93005; 93010; 99285